=== PATIENT | male | born 1945 | race African-American/Black ===

== ENCOUNTER 2017-10-11 13:15 | Outpatient (RCR) | payer OTHER | END 2017-11-01 | disposition home or self-care (01) | LOC: PTY 13:15 | DX: M25.511 Pain in right shoulder (principal); G89.29 Other chronic pain ==

== ENCOUNTER 2017-11-09 13:00 | Outpatient (RCR) | payer OTHER | END 2017-12-02 | disposition home or self-care (01) | LOC: PTY 13:00 | DX: M25.511 Pain in right shoulder (principal); G89.29 Other chronic pain ==

== ENCOUNTER 2017-12-12 14:15 | Outpatient (RCR) | payer OTHER | END 2018-01-01 | disposition home or self-care (01) | LOC: PTY 14:15 | DX: M25.511 Pain in right shoulder (principal); G89.29 Other chronic pain ==

== ENCOUNTER 2018-01-03 13:00 | Outpatient (RCR) | payer OTHER | END 2018-02-01 | disposition home or self-care (01) | LOC: PTY 13:00 | DX: M25.511 Pain in right shoulder (principal); G89.29 Other chronic pain ==